=== PATIENT | female | born 1950 | race Caucasian/White ===

== ENCOUNTER 2022-12-02 11:21 | Emergency (ER) | payer MEDICARE, SELFPAY ==
[2022-12-02 11:29] VITALS: BP 171/70; PULSE 67; RESP 16; TEMP 36.8; O2SAT 98
--- NOTE | 2022-12-02 12:04 | ED.EAR ---
HPI - Ear Problem General Chief complaint: Ear Stated complaint: Ear Pain Source: patient and RN notes reviewed History of Present Illness HPI Narrative: 71 yo F Presents to urgent care with complaints of bilateral ear pain. Patient states they have been hurting her for the last 5-6 days. She is pretty sure she has an infection in her ears. Patient is also reporting has ringing in her ears and states she gets dizzy with certain head movements. He denies any recent swimming. States that she was hot and had chills approximately 5-6 days ago. Denies any chest pain, shortness of, or vomiting. Denies any congestion or sore throat. Pt has used OTC ear drops without relief. Related Data Home Medications Medication Instructions Recorded Confirmed amlodipine 5 mg tablet mg 12/02/22 glimepiride 2 mg tablet mg 12/02/22 metformin 500 mg tablet,extended mg PO 12/02/22 release 24 hr metoprolol succinate 100 mg mg PO 12/02/22 tablet,extended release 24 hr mirabegron 50 mg tablet,extended mg PO 12/02/22 release 24 hr (Myrbetriq) pioglitazone 30 mg tablet mg 12/02/22 valsartan 320 tablet 12/02/22 mg-hydrochlorothiazide 25 mg tablet Allergies Allergy/AdvReac Type Severity Reaction Status Date / Time No Known Allergies Allergy Verified 12/02/22 11:29 Review of Systems Review of Systems: CONSTITUTIONAL: Denies fever, chills, or sweats. EYES: Denies visual changes, redness, or discharge. ENT:Bilateral ear pain and ringing. CARDIOVASCULAR: Denies chest pain, palpitations, or edema. RESPIRATORY: Denies cough or dyspnea. GASTROINTESTINAL: Denies abdominal pain, nausea, vomiting, or diarrhea. GENITOURINARY: Denies dysuria or hematuria. SKIN: Denies rash or itching. MUSCULOSKELETAL: Denies back pain, joint pain, or myalgia. NEUROLOGIC: Reports dizziness with certain movements of her head Pertinent positives per HPI. PMFSH Comments At the time of my signature, I reviewed and agree with the nursing past medical, surgical, social, and family history. There is no relevant family history pertinent to the patient complaint. Exam Narrative: GENERAL: This is a well-nourished, well-developed patient, in no apparent distress. HEAD: normocephalic, atraumatic. EYES: Sclera clear/white. Vision is grossly intact. EARS: Left ear canal edematous, unable to visualize the TM. Canal is non-tender and not erythremic. NOSE: External nose normal with no obvious nasal discharge, nares without redness, no rhinorrhea. THROAT: Mucous membranes moist, posterior pharynx clear. NECK: Neck supple, non-tender without lymphadenopathy, masses or thyromegaly. CARDIOVASCULAR: Regular rate and rhythm without murmurs, gallops, or rubs. RESPIRATORY: Clear to auscultation. Breath sounds equal bilaterally. No wheezes, rales, or rhonchi. GASTROINTESTINAL: Abdomen soft, non-tender, nondistended. Bowel sounds are active. No hepato-splenomegaly, or palpable masses. No guarding. SKIN: warm, intact with no suspicious lesions or rash, good texture and turgor. NEURO: awake, alert, and oriented to person, place and time. There were no obvious focal neurologic abnormalities. EXTREMITIES: No clubbing, cyanosis, or edema. No joint tenderness, effusion, or edema noted. BACK: Nontender without deformity or crepitus. No flank tenderness. Course Course Level of Care: Express Care Visit Vital Signs Vital signs: Vital Signs Temperature 98.2 F 12/02/22 11:29 Pulse Rate 67 12/02/22 11:29 Respiratory Rate 16 12/02/22 11:29 Blood Pressure 171/70 H 12/02/22 11:29 Pulse Oximetry 98 12/02/22 11:29 Oxygen Delivery Room Air 12/02/22 11:29 Temperature 98.2 F 12/02/22 11:29 Pulse Rate 67 12/02/22 11:29 Respiratory Rate 16 12/02/22 11:29 Blood Pressure 171/70 H 12/02/22 11:29 Pulse Oximetry 98 12/02/22 11:29 Oxygen Delivery Room Air 12/02/22 11:29 Reviewed Medical Decision Making MDM Narrative Medical deci
== END 2022-12-02 12:18 | disposition home or self-care (01) ==
PROVIDERS: Emergency Provider Nurse Practitioner Family; PCP Internal Medicine
DX: R42 Dizziness and giddiness (principal); H60.502 Unspecified acute noninfective otitis externa, left ear; E78.00 Pure hypercholesterolemia, unspecified; I10 Essential (primary) hypertension
CPT/HCPCS: 99213; G0463